=== PATIENT | female | born 1980 | race Caucasian/White ===

== ENCOUNTER → 2019-07-27 09:05 | Outpatient (CLI) | payer OTHER, SELFPAY ==
[2019-07-27 10:30] LABS: Hematocrit 37.3 % (36-46); Hemoglobin 12.3 g/dL (12.0-16.0)
== END ==
PROVIDERS: PCP Obstetrics & Gynecology; Visit Provider Obstetrics & Gynecology
DX: N93.9 Abnormal uterine and vaginal bleeding, unspecified (principal)
CPT/HCPCS: 36415; 84443; 85014; 85018

== ENCOUNTER 2019-09-11 06:38 | Day surgery (SDC) | payer OTHER, SELFPAY ==
[2019-09-10 11:46] VITALS: BMI 39.8
[2019-09-11 07:13] VITALS: BP 128/83; PULSE 68; RESP 14; TEMP 36.6; O2SAT 97; BMI 39.0
[2019-09-11] MEDS: LACTATED RINGERS 1,000 ML 100 ML IV (07:23)
[2019-09-11 07:24] VITALS: BMI 39.0
--- NOTE | 2019-09-11 07:47 | PM.PREOP ---
Pre-operative Note Interval Note History & Physical reviewed/Exam performed by Physician: Yes Changes to H&P: No
--- NOTE | 2019-09-11 08:03 | SUR.OPER ---
Lithotomy on padded OR bed, head on pillow, arms secured on padded arm boards at <90 degrees abduction. Legs secured in padded yellow fins stirrups.
[2019-09-11 08:20] VITALS: BP 128/96; PULSE 75; RESP 14; TEMP 36.2; O2SAT 93
--- NOTE | 2019-09-11 08:25 | P.OP_ITS ---
Operative Date/Time/Diagnoses Date of procedure: 09/11/19 Time of procedure: 07:45 Pre-op diagnosis: heavy menses Post-op diagnosis: same Procedure & Clinicians Procedure: Novsure endometrial ablation Same procedure as scheduled: Yes Indications: heavy menses Surgeon: Jasmyne Belle Supply Requirements Officer: Megan Sanders Anesthesia Type: Sedation Operative Notes Findings: Normal vulva, vagina, cervix. Specimen(s): none sent Estimated Blood Loss (mL): 0 Blood products transfused: none Procedure in detail: After informed consent was obtained, the patient was taken to the operating room. Anesthesia was obtained and the patient was placed in the dorsal lithotomy position and prepped and draped in the usual sterile fashion. A test had been negative prior to transfer, the patient voided just prior to entering the operating room. A bivalve speculum was placed in the vagina, and the anterior lip of the cervix grasped with a tenaculum. The uterus was sounded to 8 cm, with an endometrial cavity of 5 cm. The NovaSure device was tested outside of the body and found to deploy correctly, and this cavity length was dialed into the NovaSure. The cervix was easily serially dilated to 7 mm with Hegar dilators. The NovaSure device was gently inserted into the endometrial cavity in the usual fashion, deployed with gentle pressure, and rotated to ensure adequate complete deployment of the array. The width measurement was 4.5 cm. The tenaculum was removed from the cervix and the cervical cap was applied and held to the cervix with gentle pressure. A cavity assessment was performed in the usual fashion using the NovaSure device, and passed. Radiofrequency energy was applied via the NovaSure array in the usual fashion, with a power of 124W and a time of 100 seconds to completion. After the procedure was finished, the NovaSure array was retracted into the sleeve and gently removed from the uterus. There was no bleeding from the cervix after the procedure. The speculum was removed from the vagina. The patient tolerated the procedure well, all counts were correct x2, and no antibiotics were indicated. The patient was taken to the PACU in stable condition. IVF: 700mls LR Complications: none Post-operative Condition: stable Disposition: PACU Plan for aftercare: Nothing in the vagina for 2 weeks. Discussed with patient and spouse Motrin, pain control, expected symptoms, and outpatient follow-up.
[2019-09-11 08:29] VITALS: BP 123/84; PULSE 76; RESP 15; O2SAT 93
[2019-09-11 08:36] VITALS: BP 134/95; PULSE 68; RESP 15; O2SAT 98
[2019-09-11 08:41] VITALS: BP 138/90; PULSE 64; RESP 16; TEMP 37.2; O2SAT 98
--- NOTE | 2019-09-11 09:17 | SUR.PHASEII ---
0900 - 0913 A&O, cheerful, voicing how easy the procedure was. Anxious to go home. IV dc'd, clothes given. Ambulated to the bathroom - stable on feet. Voided qs
== END 2019-09-11 09:13 | disposition home or self-care (01) ==
PROVIDERS: PCP Obstetrics & Gynecology; Referring Provider Obstetrics & Gynecology; Visit Provider Obstetrics & Gynecology
PROC: 0U5B8ZZ Destruction of Endometrium, Via Natural or Artificial Opening Endoscopic (ICD-10-PCS; CPT 58563; principal; 2019-09-11 07:45)
DX: N93.9 Abnormal uterine and vaginal bleeding, unspecified (principal); N92.0 Excessive and frequent menstruation with regular cycle
CPT/HCPCS: 58353; J1100; J1885; J2250; J2405; J2704; J3010

== ENCOUNTER → 2020-12-31 09:36 | Outpatient (CLI) | payer OTHER, SELFPAY | PROVIDERS: PCP Obstetrics & Gynecology; Referring Provider Obstetrics & Gynecology; Visit Provider Obstetrics & Gynecology | DX: Z12.31 Encounter for screening mammogram for malignant neoplasm of breast (principal); Z53.8 Procedure and treatment not carried out for other reasons ==

== ENCOUNTER → 2021-01-17 08:40 | Outpatient (CLI) | payer OTHER, SELFPAY ==
--- NOTE | 2021-01-17 08:41 | DI.US.S_ITS ---
LIMITED ULTRASOUND OF RIGHT BREAST: 01/17/2021 CLINICAL: Focal right breast pain and palpable lump. Comparison is made to exam dated: 01/17/2021 [facility]. Real-time ultrasound of the right breast upper outer quadrant and retroareolar regions was performed. Maguire scale images of the real-time examination were reviewed. No significant abnormalities were seen sonographically in the right breast. Specifically, no finding to correspond to the patient's pain, nipple discharge, or palpable abnormality. IMPRESSION: NEGATIVE No findings to explain right breast symptoms. There is no sonographic or mammographic evidence of malignancy. Return to annual mammogram screening schedule is recommended. Findings and recommendations were conveyed to the patient at time of exam. This exam was interpreted at Station ID: [id number]. Electronically Signed By: Judy greer/:01/17/2021 11:13:10 letter sent: Normal Exam Ultrasound BI-RADS: 1 Negative
--- NOTE | 2021-01-17 08:41 | DI.MG.S_ITS ---
BILATERAL DIGITAL DIAGNOSTIC MAMMOGRAM 3D/2D: 01/17/2021 CLINICAL: Baseline. Breast pain and questionable mass. No prior exams were available for comparison. The tissue of both breasts is heterogeneously dense. This may lower the sensitivity of mammography. No significant masses, calcifications, or other findings are seen in either breast. Specifically, no finding to correspond to the patient's palpable abnormality or the nipple discharge. Left breast mammogram is normal. IMPRESSION: INCOMPLETE: NEEDS ADDITIONAL IMAGING EVALUATION There is no abnormality seen in the right breast to correspond with the pain in the upper outer quadrant which is consistent with normal fibroglandular tissue and fibrocystic change. There is no abnormality seen in the right breast to correspond with the non-bloody discharge from the nipple. Ultrasound is recommended for full evaluation of these areas. This was performed immediately following this exam. This exam was interpreted at Station ID: [id number]. NOTE: For mammograms, a report in lay terms will be sent to the patient. Approximately 15% of breast malignancies will not be visualized mammographically. In the management of a palpable breast mass, a negative mammogram must not discourage biopsy of a clinically suspicious lesion. Electronically Signed By: Judy greer/:01/17/2021 09:23:46 ACR BI-RADS Category 0: Incomplete [id number]
== END ==
PROVIDERS: Referring Provider Obstetrics & Gynecology; Visit Provider Obstetrics & Gynecology
DX: R92.2 Inconclusive mammogram (principal); N64.4 Mastodynia; N63.10 Unspecified lump in the right breast, unspecified quadrant; N64.52 Nipple discharge
CPT/HCPCS: 76642; 77066; G0279

== ENCOUNTER 2022-03-31 11:17 | Emergency (ER) | payer OTHER, SELFPAY ==
[2022-03-31] VITALS (9 sets, daily range): BP systolic 175–209; BP diastolic 99–120; PULSE 75–107; RESP 13–24; TEMP 36.6; O2SAT 99–100
--- NOTE | 2022-03-31 11:29 | DI.RAD.S_ITS ---
PROCEDURE: XR CHEST 1V INDICATIONS: chest pain TECHNIQUE: One view of the chest was acquired. COMPARISON: None. FINDINGS: Surgical changes and devices: None. Lungs and pleura: Lungs are clear. No pleural effusions or pneumothorax. Mediastinum: Mediastinal contours appear normal. Heart size is normal. Bones and chest wall: No suspicious bony lesions. Overlying soft tissues appear unremarkable. IMPRESSION: No acute cardiopulmonary findings Approved by: Edy Amato M.D. on 03/31/2022 at 11:19
[2022-03-31 11:50] LABS: Add Manual Diff / Slide Review NO; Basophils Absolute Auto 100 /uL (0-100); Basophils Percent Auto 0.9 % (0-2); Eosinophils Absolute Auto 100 /uL (0-450); Eosinophils Percent Auto 1.8 % (2-4); Hematocrit 42.8 % (36-46); Hemoglobin 14.7 g/dL (12.0-16.0); Lymphocytes Absolute Auto 2300 /uL (1100-4500); Lymphocytes Percent Auto 28.4 % (25-40); Mean Corpuscular HGB Conc 34.3 % (30-36); Mean Corpuscular Hemoglobin 29.7 PG (26-34); Mean Corpuscular Volume 86.5 fL (80-100); Monocytes Absolute Auto 500 /uL (0-900); Monocytes Percent Auto 6.8 % (3-14); Neutrophils Absolute Auto 5000 /uL (1500-7000); Neutrophils Percent Auto 62.1 % (50-75); Platelet Count 364 X10^3/uL (150-400); Red Blood Cell Count 4.94 X10^6/uL (4.0-5.2); Red Cell Distribution Width 12.7 % (11.6-14.8); White Blood Cell Count 8.1 X10^3/uL (4.5-11.0)
[2022-03-31 12:10] LABS: Alanine Aminotransferase 23 IU/L (<35); Albumin 4.2 g/dL (3.5-5.0); Albumin Globulin Ratio 1.2 (1.0-2.8); Alkaline Phosphatase 97 U/L (38-126); Aspartate Aminotransferase 25 IU/L (14-36); BUN Creatinine Ratio 12.5 (6-22); Bilirubin Total 0.6 mg/dL (0.2-1.3); Blood Urea Nitrogen 9 mg/dL (7-17); Calcium 8.8 mg/dL (8.4-10.2); Carbon Dioxide 24 mmol/L (22-32); Chloride 103 mmol/L (98-107); Creatine Kinase 115 U/L (30-135); Estimated Glomerular Filt Rate > 60 mL/min (>60); Globulin 3.6 g/dL (1.7-4.1); Glucose 123 mg/dL (70-100); HEMOLYSIS < 15 (0-50); Lipase 35 U/L (23-300); Potassium 3.7 mmol/L (3.4-5.1); Sodium 139 mmol/L (137-145); Total Protein 7.8 g/dL (6.3-8.2)
[2022-03-31 12:22] LABS: Troponin I < 0.012 ng/mL (0.01-0.034)
[2022-03-31 12:25] LABS: CKMB % Relative Index 0.6 % (1.5-5.0); Creatine Kinase MB 0.67 ng/mL (<2.37)
--- NOTE | 2022-03-31 16:04 | ED_ITS ---
HPI - Chest Pain <Sunny Conde PA-C - Last Filed: 03/31/22 17:19> General Chief Complaint: Chest Pain Stated Complaint: chest pains Time Seen by Provider: 03/31/22 11:43 Source: patient Mode of arrival: Ambulatory Limitations: no limitations History of Present Illness HPI narrative: Patient is a 41-year-old female who presents to the emergency room complaint pressure in chest and minimal pain to her left forearm that started about 1 month. Also states she told me job at time and feels that stress is related to that. Now the pain is about a 3/10 at its worst is about a 6/10. Pain is not related to exertion and has no associated shortness of breath. However admit that she has periodic filling of the neck her heart is racing. Patient also attributes this to possible anxiety. States the pain radiates and is in the center of her chest. They said that she started this job he periodically feels like she is having panic attack can not use the prosthesis pressure in chest. A dmits that she does not have from my care provider she needs 1. He is not had her blood pressure checked or see primary care provider in over a year. 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 Related Data Home Medications Medication Instructions Recorded Confirmed valacyclovir 500 mg tablet 500 mg PO DAILY PRN Cold Sores 09/11/19 09/11/19 (Valtrex) Previous Rx's Medication Instructions Recorded lorazepam 0.5 mg tablet (Ativan) 0.5 mg PO DAILY PRN anxiety #10 03/31/22 tabs Allergies Allergy/AdvReac Type Severity Reaction Status Date / Time No Known Drug Allergies Allergy Unverified 01/03/21 13:34 Review of Systems <Sunny Conde PA-C - Last Filed: 03/31/22 17:19> Review of Systems Narrative: R.O.S.: General: No fever, chills or fatigue. Cardiovascular: Chest pressure and heart racing about a week. Respiratory: No S.O.B. HEENT: No congestion, ear pain, rhinorrhea, sore throat or tinnitus Gastrointestinal: No nausea or vomiting : No urinary concerns Skin: No rash or associated abnormalities Musculoskeletal: Left elbow pain about a week. ? Neurological: Awake, alert and in not apparent distress. No Headaches, changes in vision or other related neurological concerns. Patient History <Sunny Conde PA-C - Last Filed: 03/31/22 17:19> Medical History (Updated 03/31/22 @ 16:28 by Sunny Conde PA-C) Abnormal uterine bleeding Deafness Vaginal delivery Surgical History (Updated 01/08/21 @ 10:43 by Jasmyne Belle MD) History of endometrial ablation Social History household members: spouse and children Smoking Status: Never smoker Smoking Status: Never smoker alcohol intake frequency: a few times a month Substance Use Type: does not use Exam <Sunny Conde PA-C - Last Filed: 03/31/22 17:19> Narrative Exam Narrative: Physical Exam: ? General: normal appearance, well developed, well nourished, alert, and awake. Not in acute distress but is emotionally disturbed with certain questions regarding her family and social life.. ? Head: Normocephalic, no lesions. Chest: Lungs CTAB, no rales, rhonchi or wheezes. ?? Heart: RRR, no murmurs, rubs or gallops. Eyes: PERRLA, EOM's full, conjunctivae clear. ? Neuro: Physiological, no localizing findings, CN3-12 intact. ?? Extremities: Warm, well perfused, FROM, no deformities, no edema. ?? Skin: Normal, no rashes, no lesions noted. ?? PSYCHIATRIC: The mood is good, no blunted affect. Speech is clear. Thought process is linear, thought content is appropriate. The voice is without significant inflection. Gastrointestinal: Soft; NT; ND; Pos BS with Neg. rebound tenderness. No scars or major deformities noted on Visual Inspection. Initial Vital Signs Initial Vital Signs: Vital Signs Temperature 97.9 F 03/31/22 11:20 Pulse Rate 107 H 03/31/22 11:20 Respiratory Rate 18 03/31/22 11:20 Blood Pressure 190/120 H 03/31/22 11:20 Pulse Oximetry 99 03/31/22 11:20 Oxygen Delivery Method 03/31/22 11:20 <Catherine Clifford MD - Last Filed: 04/01/22 07:23> Initial Vital Signs Initial Vital Signs: Vital Signs Temperature 97.9 F 03/31/22 11:20 Pulse Rate 107 H 03/31/22 11:20 Respiratory Rate 18 03/31/22 11:20 Blood Pressure 190/120 H 03/31/22 11:20 Pulse Oximetry 99 03/31/22 11:20 Oxygen Delivery Method 03/31/22 11:20 Course <Sunny Conde PA-C - Last Filed: 03/31/22 17:19> Orders Ordered: Discontinued Medications Lorazepam (Lorazepam 0.5 Mg Tablet) 0.5 mg PO NOW ONE Stop: 03/31/22 16:14 Last Admin: 03/31/22 16:26 Dose: 0.5 mg Documented By: NR Vital Signs Vital signs: Vital Signs - 8 hr 03/31/22 11:20 03/31/22 15:08 03/31/22 15:09 Temperature 97.9 F Pulse Rate 107 H 94 H 93 H Respiratory Rate 18 24 13 Blood Pressure 190/120 H Pulse Oximetry 99 99 100 Oxygen Delivery Method Room Air 03/31/22 15:09 Temperature Pulse Rate Respiratory Rate Blood Pressure 209/117 H Pulse Oximetry Oxygen Delivery Method <Catherine Clifford MD - Last Filed: 04/01/22 07:23> Orders Ordered: Discontinued Medications Lorazepam (Lorazepam 0.5 Mg Tablet) 0.5 mg PO NOW ONE Stop: 03/31/22 16:14 Last Admin: 03/31/22 16:26 Dose: 0.5 mg Documented By: NR Vital Signs Vital signs: Vital Signs - 8 hr 03/31/22 11:20 03/31/22 15:08 03/31/22 15:09 Temperature 97.9 F Pulse Rate 107 H 94 H 93 H Respiratory Rate 18 24 13 Blood Pressure 190/120 H Pulse Oximetry 99 99 100 Oxygen Delivery Method Room Air 03/31/22 15:09 Temperature Pulse Rate Respiratory Rate Blood Pressure 209/117 H Pulse Oximetry Oxygen Delivery Method MDM - Chest Pain <Sunny Conde PA-C - Last Filed: 03/31/22 17:19> Lab Data Result diagrams: 03/31/22 11:35 03/31/22 11:35 Labs: Lab Results 03/31/22 03/31/22 Range/Units 11:35 11:35 WBC 8.1 (4.5-11.0) X10^3/uL RBC 4.94 (4.0-5.2) X10^6/uL Hgb 14.7 (12.0-16.0) g/dL Hct 42.8 (36-46) % MCV 86.5 (80-100) fL MCH 29.7 (26-34) PG MCHC 34.3 (30-36) % RDW 12.7 (11.6-14.8) % Plt Count 364 (150-400) X10^3/uL Neut % (Auto) 62.1 (50-75) % Lymph % (Auto) 28.4 (25-40) % Jerome % (Auto) 6.8 (3-14) % Eos % (Auto) 1.8 L (2-4) % Baso % (Auto) 0.9 (0-2) % Neut # (Auto) 5000 (5746-6950) /uL Lymph # (Auto) 2300 (5182-3065) /uL Jerome # (Auto) 500 (0-900) /uL Eos # (Auto) 100 (0-450) /uL Baso # (Auto) 100 (0-100) /uL Sodium 139 (137-145) mmol/L Potassium 3.7 (3.4-5.1) mmol/L Chloride 103 (98-107) mmol/L Carbon Dioxide 24 (22-32) mmol/L BUN 9 (7-17) mg/dL Creatinine 0.72 (0.52-1.04) mg/dL Estimated GFR > 60 (>60) mL/min BUN/Creatinine Ratio 12.5 (6-22) Glucose 123 H (70-100) mg/dL Calcium 8.8 (8.4-10.2) mg/dL Magnesium 2.0 (1.6-2.3) mg/dL Total Bilirubin 0.6 (0.2-1.3) mg/dL AST 25 (14-36) IU/L ALT 23 (<35) IU/L Alkaline Phosphatase 97 (38-126) U/L Total Creatine Kinase 115 (30-135) U/L CK-MB (CK-2) 0.67 (<2.37) ng/mL CK-MB (CK-2) Rel Index 0.6 L (1.5-5.0) % Troponin I < 0.012 (0.01-0.034) ng/mL Total Protein 7.8 (6.3-8.2) g/dL Albumin 4.2 (3.5-5.0) g/dL Globulin 3.6 (1.7-4.1) g/dL Albumin/Globulin Ratio 1.2 (1.0-2.8) Lipase 35 (23-300) U/L Imaging Data Chest x-ray: Radiologist's Impression: PROCEDURE:? XR CHEST 1V ? INDICATIONS:? chest pain ? TECHNIQUE:? One view of the chest was acquired.? ? COMPARISON:? None. ? FINDINGS:? ? Surgical changes and devices:? None.? ? Lungs and pleura:? Lungs are clear.? No pleural effusions or pneumothorax.? ? Mediastinum:? Mediastinal contours appear normal.? Heart size is normal.? ? Bones and chest wall:? No suspicious bony lesions.? Overlying soft tissues appear unremarkable.? ? IMPRESSION:? No acute cardiopulmonary findings ? ? ? Approved by: Edy Amato M.D. on 03/31/2022 at 11:19? ECG Data Interpretation: EKG has normal sinus rhythm, possible left atrial enlargement. With no obvious left bundle-branch block ST segment elevation or Q-wave morphology. EKG also reviewed by Dr Clifford. [facility] Narrative Medical decision making narrative: Patient is a 41-year-old female presents to the emergency room today with complaint of pressure and left forearm pain for about 1 month. Patient can not relate this to starting a new job and admits to having anxiety issues that need to be addressed. States she does not have a primary provider and-blood pressure checked in over a year. Labs and diagnostics not discovered any urgent or emergent concerns. Patient blood pressure over remained elevated during her visit. 0.5 Mg of Ativan was administered to try and relax the patient does see if her blood pressure was lower. Plan is to refer patient to a primary care provider in network and discharge her home today. Patient was given some take- home medications for her anxiety and advised to continue to check her blood pressures into she follow up with the primary care. Patient was also advised to return to emergency room should any concerns arise. Patient agrees with plan <Catherine Clifford MD - Last Filed: 04/01/22 07:23> Lab Data Labs: Lab Results 03/31/22 03/31/22 Range/Units 11:35 11:35 WBC 8.1 (4.5-11.0) X10^3/uL RBC 4.94 (4.0-5.2) X10^6/uL Hgb 14.7 (12.0-16.0) g/dL Hct 42.8 (36-46) % MCV 86.5 (80-100) fL MCH 29.7 (26-34) PG MCHC 34.3 (30-36) % RDW 12.7 (11.6-14.8) % Plt Count 364 (150-400) X10^3/uL Neut % (Auto) 62.1 (50-75) % Lymph % (Auto) 28.4 (25-40) % Jerome % (Auto) 6.8 (3-14) % Eos % (Auto) 1.8 L (2-4) % Baso % (Auto) 0.9 (0-2) % Neut # (Auto) 5000 (1987-4140) /uL Lymph # (Auto) 2300 (7333-0707) /uL Jerome # (Auto) 500 (0-900) /uL Eos # (Auto) 100 (0-450) /uL Baso # (Auto) 100 (0-100) /uL Sodium 139 (137-145) mmol/L Potassium 3.7 (3.4-5.1) mmol/L Chloride 103 (98-107) mmol/L Carbon Dioxide 24 (22-32) mmol/L BUN 9 (7-17) mg/dL Creatinine 0.72 (0.52-1.04) mg/dL Estimated GFR > 60 (>60) mL/min BUN/Creatinine Ratio 12.5 (6-22) Glucose 123 H (70-100) mg/dL Calcium 8.8 (8.4-10.2) mg/dL Magnesium 2.0 (1.6-2.3) mg/dL Total Bilirubin 0.6 (0.2-1.3) mg/dL AST 25 (14-36) IU/L ALT 23 (<35) IU/L Alkaline Phosphatase 97 (38-126) U/L Total Creatine Kinase 115 (30-135) U/L CK-MB (CK-2) 0.67 (<2.37) ng/mL CK-MB (CK-2) Rel Index 0.6 L (1.5-5.0) % Troponin I < 0.012 (0.01-0.034) ng/mL Total Protein 7.8 (6.3-8.2) g/dL Albumin 4.2 (3.5-5.0) g/dL Globulin 3.6 (1.7-4.1) g/dL Albumin/Globulin Ratio 1.2 (1.0-2.8) Lipase 35 (23-300) U/L Discharge Plan Departure Patient Disposition: Home Clinical Impression: Chest pressure, Anxiety, Elevated blood-pressure reading without diagnosis of hypertension Instructions: High Blood Pressure, DI for Anxiety -- Adult, DI for Chest Pain Activity Restrictions/Additional Instructions: *You have been diagnosed with chest pressure and elevated blood pressure secondary to anxiety.. Per our discussions you have not had a follow-up with primary care provider in over a year. I also suggest to continue to check your blood pressures and to follow with your primary care provider.. Labs and diagnostics done today were negative for heart attack or any acute concerns. I have also ordered some medications to help with your anxiety and suggest you use those as needed to follow up with your primary care provider. I have also referred you to our family medicine physicians. [facility]. The doctor is and their phone number is [phone]. Suggested follow-up with your primary care provider in regards to your anxiety and elevated blood pressure. I also suggest she return to the emergency room should any concerns arise. [ ] *What to do: *Please continue to take your regular medications as directed. [ ] New medication prescriptions sent to your pharmacy: [ ] [x] New medication written as a paper prescription [ ] No new medications given *Please follow up with your primary care provider in 2-3 days, call for an appointment. Let them know you were seen in the Emergency Department and that we ask that you be seen in follow up. We will electronically transmit a record of today's note if your PCP is in our system *If you do not have a primary care provider please contact the [facility] Resource line at [phone]. They will ask some questions about your medical history and help get you set up with a doctor in the community. *Return to Emergency Department if you should have any new, worsening or concerning symptoms, such as [fever greater than 101 F, shaking chills, worsening pain, persistent vomiting or other bothersome symptoms] Prescriptions: New lorazepam [Ativan] 0.5 mg tablet 0.5 mg PO DAILY PRN (Reason: anxiety) Qty: 10 0RF No Action valacyclovir [Valtrex] 500 mg Tablet 500 mg PO DAILY PRN (Reason: Cold Sores) Referrals: Miscellaneous,Doctor, [Primary Care Provider] - Neal Priest MD [Physician] - Visit Report Forms: Patient Portal/API <Catherine Clifford MD - Last Filed: 04/01/22 07:23> [facility] I was immediately available in the department for consultation throughout this patient's visit. I agree with documentation as above. Catherine Clifford MD
[2022-03-31] MEDS: LORazepam 0.5 MG TABLET PO (16:26)
== END 2022-03-31 17:30 | disposition home or self-care (01) ==
PROVIDERS: Emergency Medicine; Emergency Provider Physician Assistant
DX: R07.9 Chest pain, unspecified (principal); F41.9 Anxiety disorder, unspecified; R03.0 Elevated blood-pressure reading, without diagnosis of hypertension; M25.522 Pain in left elbow
CPT/HCPCS: 36415; 71045; 80053; 82550; 82553; 83690; 83735; 84484; 85025; 93005; 99284

== ENCOUNTER 2025-03-22 15:49 | Emergency (ER) | payer OTHER, SELFPAY ==
[2025-03-22 15:53] VITALS: BP 182/98; PULSE 65; RESP 18; TEMP 36.9; O2SAT 97; BMI 36.6
--- NOTE | 2025-03-22 16:37 | ED.GENADULT ---
HPI - General Adult General Chief complaint: Urogenital-Female Stated complaint: pelvic pain has ovarian cysts Time Seen by Provider: 03/22/25 16:21 Source: patient Mode of arrival: Ambulatory History of Present Illness HPI narrative: 44-year-old woman with a history of hypertension, menometrorrhagia underwent uterine ablation 5 years ago has continued to have vaginal bleeding last month was seen by a Fam [facility]BS[facility] ultrasound done a month ago showing right ovarian cyst that was 6 cm a 2 cm left ovarian cyst with hydrosalpinx. She was started on antibiotics with a shot of ceftriaxone and oral doxycycline has completed these and pain is getting worse. Over the last week it continues to have waxing and waning episodes in the last 48 hours has been severe. She has been using meloxicam with significant breakthrough pain to the point that she is curled up on the floor with severe nausea. Comes in for further evaluation. She does not describe fevers, chills, diarrhea, constipation, dyspnea, chest pain or orthopnea. Related Data Home Medications ?Medication ?Instructions ?Recorded ?Confirmed valacyclovir 500 mg tablet 500 mg PO DAILY PRN Cold Sores 09/11/19 09/11/19 (Valtrex) Previous Rx's ?Medication ?Instructions ?Recorded lorazepam 0.5 mg tablet (Ativan) 0.5 mg PO DAILY PRN anxiety #10 03/31/22 tabs naproxen 500 mg tablet 500 mg PO BID #60 tabs 03/22/25 oxycodone-acetaminophen 5 mg-325 1 tab PO Q6H PRN pain #20 tabs 03/22/25 mg tablet Allergies Allergy/AdvReac Type Severity Reaction Status Date / Time No Known Drug Allergies Allergy Verified 03/22/25 15:58 Review of Systems Review of Systems Narrative: Pertinent positive and negative findings as per HPI Patient History Medical History Abnormal uterine bleeding Deafness Vaginal delivery Surgical History History of endometrial ablation Social History household members: spouse and children Smoking Status: Never smoker Smoking Status: Never smoker alcohol intake frequency: a few times a month Exam Initial Vital Signs Initial Vital Signs: Vital Signs Temperature 98.4 F 03/22/25 15:53 Pulse Rate 65 03/22/25 15:53 Respiratory Rate 18 03/22/25 15:53 Blood Pressure 182/98 H 03/22/25 15:53 Pulse Oximetry 97 03/22/25 15:53 Oxygen Delivery Method Room Air 03/22/25 15:53 General: Alert appropriate in no acute distress Respiratory: Able to speak in full sentences, no obvious respiratory distress Abdomen: No reproducible tenderness on physical exam. No obvious pelvic pain, no flank pain Skin: No obvious rashes, warm and dry Neurologic: Grossly intact no obvious asymmetries or abnormalities Psych: appropriate insight and affect, cooperative Course Orders Ordered: ED Orders 03/22/25 17:10 US pelvic complete Stat US renal complete Stat 03/22/25 17:20 CBC Auto Diff [Complete Blood Count AUTO DIFF] Stat CMP [Comprehensive Metabolic Panel] Stat Discontinued Medications Oxycodone/Acetaminophen (Oxycodone/Acetaminophen 5/325 Tablet) 1 tab PO NOW ONE Stop: 03/22/25 17:11 Last Admin: 03/22/25 17:28 Dose: 1 tab Documented By: CHIKA Vital Signs Vital signs: Vital Signs - 8 hr 03/22/25 15:53 Temperature 98.4 F Pulse Rate 65 Respiratory Rate 18 Blood Pressure 182/98 H Pulse Oximetry 97 Oxygen Delivery Method Room Air Medical Decision Making Lab Data 03/22/25 17:20 03/22/25 17:20 Labs: Lab Results 03/22/25 Range/Units 17:20 WBC 11.1 H (4.5-11.0) X10^3/uL RBC 4.74 (4.0-5.2) X10^6/uL Hgb 14.4 (12.0-16.0) g/dL Hct 40.8 (36-46) % MCV 86.1 (80-100) fL MCH 30.3 (26-34) PG MCHC 35.2 (30-36) % RDW 13.7 (11.6-14.8) % Plt Count 380 (150-400) X10^3/uL Neut % (Auto) 71.7 (50-75) % Lymph % (Auto) 19.4 L (25-40) % Frederick % (Auto) 6.2 (3-14) % Eos % (Auto) 1.8 L (2-4) % Baso % (Auto) 0.9 (0-2) % Neut # (Auto) 8000 H (3934-5603) /uL Lymph # (Auto) 2200 (7112-4064) /uL Frederick # (Auto) 700 (0-900) /uL Eos # (Auto) 200 (0-450) /uL Baso # (Auto) 100 (0-100) /uL Sodium 137 (137-145) mmol/L Potassium 3.4 (3.4-5.1) mmol/L Chloride 101 (98-107) mmol/L Carbon Dioxide 29 (22-32) mmol/L BUN 17 (7-17) mg/dL Creatinine 0.82 (0.52-1.04) mg/dL Estimated GFR > 60 (>60) mL/min BUN/Creatinine Ratio 20.7 (6-22) Glucose 113 H (70-99) mg/dL Calcium 9.0 (8.4-10.2) mg/dL Total Bilirubin 0.5 (0.2-1.3) mg/dL AST 28 (14-36) IU/L ALT 23 (<35) IU/L Alkaline Phosphatase 70 (38-126) U/L Total Protein 8.3 H (6.3-8.2) g/dL Albumin 4.4 (3.5-5.0) g/dL Globulin 3.9 (1.7-4.1) g/dL Albumin/Globulin Ratio 1.1 (1.0-2.8) HCG, Quant Cancelled Point of Care Testing Test Results Negative Urine Dip Bedside Urine Glucose Negative Bedside Urine Bilirubin - Negative Bedside Urine Ketone - Negative Urine Specific Stockwell 1.005 Bedside Urine Occult Blood + Bedside Urine pH 6.0 Bedside Urine Protein - Negative Bedside Urine Urobilinogen - Negative Bedside Urine Nitrite - Negative Bedside Urine Leukocytes - Negative Esterase Point of care testing: Point of Care Testing Test Results Negative Urine Dip Bedside Urine Glucose Negative Bedside Urine Bilirubin - Negative Bedside Urine Ketone - Negative Urine Specific Stockwell 1.005 Bedside Urine Occult Blood + Bedside Urine pH 6.0 Bedside Urine Protein - Negative Bedside Urine Urobilinogen - Negative Bedside Urine Nitrite - Negative Bedside Urine Leukocytes - Negative Esterase MDM Narrative Medical decision making narrative: 44-year-old woman with severe right pelvic pain comes in for further evaluation. She saw her electrical technician instructor last month and ultrasound was done and showed bilateral ovarian cysts. She has had a uterine ablation but is likely currently having menstrual cycle with a bit of vaginal spotting and significantly increased right pain. Pain was much better controlled with a single dose of Percocet. Ultrasound repeated in the emergency department shows a 6 cm likely chocolate cyst on the right and a 2 cm similar finding on the left. Endometrial lining looks as if it is sloughing/menstruating. She does not have any kidney abnormalities to suggest kidney stones as a source of her pain. There has been concern for hydrosalpinx with the ultrasound done in clinic a month ago that seems to has resolved with current ultrasound. Care is discussed with electrical technician instructor, Dr. Wolfe. We will arrange for more urgent outpatient follow up for definitive treatment for increasing pain secondary to 6 cm right-sided ovarian chocolate cyst. Will ask her to discontinue the meloxicam as it has been ineffective We will recommend naproxen twice a day, Percocet up to 4 times a day as needed with MiraLax to prevent constipation. There was no indication for hospitalization, OBGYN office will contact the patient to set up follow up appointment. Findings are all reviewed and she is safe for discharge Discharge Plan Departure Patient Disposition: Home Clinical Impression: Chocolate cyst of ovary, Pelvic pain Instructions: DI for Ovarian Cyst Activity Restrictions/Additional Instructions: Thank you for coming in today The ultrasound that we did today does confirm that you have a 6 cm cyst on the right side likely secondary to endometriosis. There is a 2 cm cyst on the left side with similar findings. The kidney looked nice and normal, no kidney stones I am going to suggest that you stop your meloxicam, it has not been effective I have given you a prescription for Naprosyn (the prescription version of Alleve) to use morning and night to help with baseline pain. For pain on top of this you can add Tylenol for moderate pain or Percocet which has Tylenol plus oxycodone in it. Oxycodone is a narcotic and will make you constipated. I would recommend cap full of MiraLax (over the counter)any day that you do choose to use narcotic. Prescriptions were electronically transmitted to [facility] in [place] I have contacted Dr. Wolfe, our OBGYN on-call. Please expect to hear from her office in the next 1-2 days to set up a more urgent appointment. You likely will benefit from surgical intervention. There was no reason for hospitalization at this time pain control is appropriate. If you find that you are getting worse or develop any new symptoms, please feel free to return to the emergency department for further evaluation. Prescriptions: New naproxen 500 mg tablet 500 mg PO BID Qty: 60 0RF oxycodone-acetaminophen 5-325 mg tablet 1 tab PO Q6H PRN (Reason: pain) Qty: 20 0RF No Action lorazepam [Ativan] 0.5 mg tablet 0.5 mg PO DAILY PRN (Reason: anxiety) Qty: 10 0RF valacyclovir [Valtrex] 500 mg Tablet 500 mg PO DAILY PRN (Reason: Cold Sores) Referrals: Miscellaneous,Doctor, MD [Primary Care Provider, Medical] Stand Alone Forms: Patient Portal/API
--- NOTE | 2025-03-22 17:10 | DI.US.S_ITS ---
PROCEDURE: US RENAL COMPLETE INDICATIONS: Right flank pain, stone vs ov cyst TECHNIQUE: Real-time scanning was performed of the kidneys and bladder, with image documentation. COMPARISON: None. FINDINGS: Kidneys: Kidneys are normal in size. Right kidney measures 11.5 cm long; left kidney measures 12.4 cm long. Right renal cortical thickness is 1.4 cm; left renal cortical thickness is 1.4 cm. Renal cortical echotexture is normal. No hydronephrosis or nephrolithiasis. No suspicious solid mass lesions. There is a 7 mm right simple appearing cyst. Bladder: Pre-void bladder volume is 230 mL. Post-void residual is 41 mL. Pre- void images demonstrate no intraluminal masses or stones. On pre-void images, bilateral ureteral jets are noted with color Doppler interrogation. (Of note, ureteral jets may not be detectable in up to 25% of cases due to insufficient differences in specific gravity between ureteral and bladder urine). Miscellaneous: No free pelvic fluid. IMPRESSION: Normal appearance of the kidneys and urinary bladder. Dictated by: Son Fuchs M.D. on 03/22/2025 at 19:34 Approved by: Son Fuchs M.D. on 03/22/2025 at 19:35
--- NOTE | 2025-03-22 17:10 | DI.US.S_ITS ---
PROCEDURE: US PELVIC COMPLETE INDICATIONS: pelvic pain, h/o ovarian cysts, ? hemorrhagic conversion, TECHNIQUE: Real-time scanning was performed of the pelvic organs, with image documentation. Additional endovaginal scanning was necessary due to incomplete visualization of the adnexal and endometrial structures by transabdominal scanning. COMPARISON: [facility], [place], US PELVIC COMPLETE, 07/27/2019, 8:58. FINDINGS: Uterus: Uterus is anteverted and normal in size at 12.5 x 6.0 x 7.5 cm. The myometrium is heterogeneous. The endometrium measures 16.3 mm combined thickness. Possible polyp within the endometrium measuring 10 x 8 mm. Ovaries: The right ovary measures 9.8 x 6.9 x 7.6 cm, with a calculated ovarian volume of 271 cc. Multiple endometriomas, largest measuring 7.3 x 5.0 x 6.6. The left ovary measures 3.6 x 3.2 x 3.8 cm, with a calculated ovarian volume of 22.3 cc. Possible endometrioma measuring 2.4 x 1.7 x 2.9 cm. Less than 12 follicles can be seen in each ovary. . Other: No pathologic free abdominal or pelvic fluid. IMPRESSION: Multiple likely endometriomas with largest measuring up to 7.3 cm on the right. Uterus is enlarged and heterogeneous, correlate for adenomyosis. Possible endometrial polyp measuring 10 mm. Endometrium is upper limits of normal in thickness measuring 16 mm. We strive to produce accurate, complete, and clear reports of imaging services. To assist us in improving patient care, this report was composed using standard report templates and voice recognition software. Therefore, it may contain abnormal punctuation, insertions and/or omissions. Occasional wrong-word or sound-alike substitutions may occur. Though we review the report and make efforts to correct it, we do recommend that the report be read carefully in proper context to recognize any text inaccuracies. Dictated by: Son Fuchs M.D. on 03/22/2025 at 19:27 Approved by: Son Fuchs M.D. on 03/22/2025 at 19:34
[2025-03-22 17:31] LABS: Add Manual Diff / Slide Review NO; Hematocrit 40.8 % (36-46); Hemoglobin 14.4 g/dL (12.0-16.0); Lymphocytes Absolute Auto 2200 /uL (1100-4500); Mean Corpuscular HGB Conc 35.2 % (30-36); Mean Corpuscular Hemoglobin 30.3 PG (26-34); Mean Corpuscular Volume 86.1 fL (80-100); Platelet Count 380 X10^3/uL (150-400)
[2025-03-22 17:42] LABS: Alanine Aminotransferase 23 IU/L (<35); Albumin 4.4 g/dL (3.5-5.0); Albumin Globulin Ratio 1.1 (1.0-2.8); Alkaline Phosphatase 70 U/L (38-126); Blood Urea Nitrogen 17 mg/dL (7-17); Calcium 9.0 mg/dL (8.4-10.2); Carbon Dioxide 29 mmol/L (22-32); Chloride 101 mmol/L (98-107); Estimated Glomerular Filt Rate > 60 mL/min (>60); Globulin 3.9 g/dL (1.7-4.1); Glucose 113 mg/dL (70-99); HEMOLYSIS 16 (0-50); Potassium 3.4 mmol/L (3.4-5.1); Sodium 137 mmol/L (137-145); Total Protein 8.3 g/dL (6.3-8.2)
[2025-03-22 18:15] VITALS: BP 138/78; PULSE 52; O2SAT 98
[2025-03-22 18:30] VITALS: BP 109/71; PULSE 60; O2SAT 98
[2025-03-22 19:00] VITALS: BP 108/72; PULSE 60; RESP 16; O2SAT 98
== END 2025-03-22 19:39 | disposition home or self-care (01) ==
PROVIDERS: Emergency Provider Emergency Medicine
DX: R10.2 Pelvic and perineal pain (principal); N80.103 Endometriosis of bilateral ovaries, unspecified depth
CPT/HCPCS: 36415; 76770; 76830; 76856; 80053; 81003; 81025; 85025; 99284